=== PATIENT | female | born 1980 | race Caucasian/White ===

== ENCOUNTER 2017-03-24 19:35 | Emergency (ER) | payer OTHER ==
[2017-03-24 19:50] VITALS: BP 115/61; PULSE 87; TEMP 97.8; BMI 22.4
--- NOTE | 2017-03-24 21:01 | PDOC ---
History of Present Illness - General Chief Complaint: Sore Throat Stated Complaint: THROAT PAIN/PINK EYE Time Seen by Provider: 03/24/17 20:36 History Source: Patient Exam Limitations: No Limitations - History of Present Illness Initial Comments: 03/24/17 20:56 36 yr female with c/o pink eye both eyes and sore throat. Pt states her child has strep and pink eye. Pt denies fever or chills. no medical history or allergies. Timing/Duration: 24 hours Past History - Past Medical History Allergies/Adverse Reactions: Allergies Allergy/AdvReac Type Severity Reaction Status Date / Time No Known Drug Allergies Allergy Verified 03/24/17 19:47 Home Medications: Ambulatory Orders Acetaminophen [Tylenol -] 1,000 mg PO Q6H 03/24/17 Penicillin V Potassium [Pen Vee K -] 500 mg PO BID #20 tablet 03/24/17 Tobramycin 0.3% Ophth Soln [Tobrex Ophthalmic Solution -] 1 drop OU Q4HWA #2 bottle 03/24/17 Anemia: No Asthma: No Cancer: No Cardiac Disorders: Yes ("get tachycardiac" at times mostly when ) CVA: No CHF: No Dementia: No Diabetes: No GI Disorders: No Disorders: No HTN: No Hypercholesterolemia: No Liver Disease: No Seizures: No Thyroid Disease: No - Immunization History Immunization Up to Date: Yes - Psycho/Social/Smoking Cessation Hx Suicidal Ideation: No Smoking History: Never smoked Have you smoked in the past 12 months: No Information on smoking cessation initiated: No Hx Alcohol Use: No Drug/Substance Use Hx: No Substance Use Type: None Hx Substance Use Treatment: No Review of Systems - Review of Systems Able to Perform ROS?: Yes Is the patient limited [place] proficient: No Constitutional: Yes: Symptoms Reported HEENTM: Yes: Symptoms Reported *Physical Exam - Vital Signs Last Vital Signs Temp Pulse Resp BP Pulse Ox 97.8 F 87 18 115/61 99 03/24/17 19:47 03/24/17 19:47 03/24/17 19:47 03/24/17 19:47 03/24/17 19:47 - Physical Exam General Appearance: Yes: Nourished, Appropriately Dressed HEENT: positive: EOMI, DEMI, Tonsillar Exudate, Tonsillar Erythema, Other ( bilateral conjunctival red with discharge greyish white ) Neck: positive: Lymphadenopathy (R) Respiratory/Chest: positive: Lungs Clear, Normal Breath Sounds Cardiovascular: positive: Regular Rhythm, Regular Rate Gastrointestinal/Abdominal: positive: Normal Bowel Sounds, Soft Musculoskeletal: positive: Normal Inspection Extremity: positive: Normal Capillary Refill, Normal Inspection, Normal Range of Motion Integumentary: positive: Normal Color, Dry, Warm Neurologic: positive: Fully Oriented, Alert, Normal Mood/Affect, Normal Response , Motor Strength 5/5 Medical Decision Making - Medical Decision Making 03/24/17 20:58 cc: sore throat eye discharge, red , itchy afebrile non toxic will treat for strep and conjunctivitis *DC/Admit/Observation/Transfer Diagnosis at time of Disposition: Strep pharyngitis Conjunctivitis Qualifiers: Conjunctivitis type: acute Acute conjunctivitis type: viral Laterality: bilateral Qualified Code(s): B30.9 - Viral conjunctivitis, unspecified - Discharge Dispostion Disposition: HOME Condition at time of disposition: Good - Prescriptions Prescriptions: Penicillin V Potassium [Pen Vee K -] 500 mg PO BID #20 tablet Tobramycin 0.3% Ophth Soln [Tobrex Ophthalmic Solution -] 1 drop OU Q4HWA #2 bottle - Referrals Referrals: Stephan Harris MD [Staff Physician] - - Patient Instructions Additional Instructions: take the medication as prescribed gargle with warm salt water 4-5 times a day take motrin as needed for pain use the eye drops as prescribed wash hands frequently follow with your doctor if any worsening symptoms - Post Discharge Activity Work/School Note: Back to Work
== END 2017-03-24 21:18 | disposition home or self-care (01) ==
LOC: JERFT 19:35
DX: J02.0 Streptococcal pharyngitis (principal); B95.5 Unspecified streptococcus as the cause of diseases classified elsewhere; B30.9 Viral conjunctivitis, unspecified
CPT/HCPCS: 99281-25

== ENCOUNTER 2018-08-12 16:32 | Emergency (ER) | payer OTHER ==
--- NOTE | 2018-08-12 16:42 | PDOC ---
Rapid Medical Evaluation Medical Evaluation: Allergies Allergy/AdvReac Type Severity Reaction Status Date / Time No Known Drug Allergies Allergy Verified 03/24/17 19:47 08/12/18 16:37 I have performed a brief in-person evaluation of this patient. The patient presents with a chief complaint of: DIEZ x 8 months, worsened this am. Sometimes gets nausea with DIEZ. Takes tylenol which helps at times. For unclear reasons has not seen her doctor or a neuro for symptoms Pertinent physical exam findings: stable I have ordered the following:nothing The patient will proceed to the ED for further evaluation Discharge Disposition - Diagnosis Headache Qualifiers: Headache type: unspecified Headache chronicity pattern: chronic headache Intractability: not intractable Qualified Code(s): R51 - Headache - Referrals - Patient Instructions - Post Discharge Activity
[2018-08-12 16:46] VITALS: BP 132/93; PULSE 87; TEMP 98.3; BMI 22.8
[2018-08-12] MEDS ORDERED: KETOROLAC TROMETHAMINE 60 MG/2 ML VIAL IM ONE (17:24)
--- NOTE | 2018-08-12 17:28 | PDOC ---
History of Present Illness - General Chief Complaint: Migraine Headache Stated Complaint: HEADACHE Time Seen by Provider: 08/12/18 16:43 History Source: Patient Exam Limitations: No Limitations - History of Present Illness Initial Comments: 08/12/18 17:26 Patient here with complaints of worsening headache pain primarily frontal and ethmoid sinus pain. Denies fever, denies auras but states pain has progressively worsened over the past few months, and in fact noted onset of headaches 8 months ago. Has never seen a physician, has only taken Tylenol and some type of cold medication that has given her with some good resolved. Patient denies fever, however has intermittent greenish yellow nasal drainage. Denies cough, earache or sore throat pain. Denies visual changes although has photophobia with the pain tonight. Denies neck pain, rashes, any head trauma or recent injuries. Works for [employer] in [employer]. Severity: Yes: mild Associated Symptoms: reports: fatigue. denies: fever/chills Past History - Travel Traveled outside of the country in the last 30 days: No Close contact w/someone who was outside of country & ill: No - Past Medical History Allergies/Adverse Reactions: Allergies Allergy/AdvReac Type Severity Reaction Status Date / Time No Known Drug Allergies Allergy Verified 08/12/18 16:46 Home Medications: Ambulatory Orders Oxycodone HCl/Acetaminophen [Percocet 5-325 mg Tablet -] 1 - 2 tab PO Q4H PRN # 7 tablet MDD 4 08/12/18 Anemia: No Asthma: No Cancer: No Cardiac Disorders: Yes ("get tachycardiac" at times mostly when ) CVA: No COPD: No CHF: No Dementia: No Diabetes: No GI Disorders: No Disorders: No HTN: No Hypercholesterolemia: No Liver Disease: No Seizures: No Thyroid Disease: No - Immunization History Immunization Up to Date: Yes - Suicide/Smoking/Psychosocial Hx Smoking History: Never smoked Have you smoked in the past 12 months: No Information on smoking cessation initiated: No Hx Alcohol Use: No Drug/Substance Use Hx: No Substance Use Type: None Hx Substance Use Treatment: No Review of Systems - Review of Systems Able to Perform ROS?: Yes Is the patient limited Ukrainian proficient: Yes Constitutional: Yes: Symptoms Reported, See HPI, Fever, Malaise HEENTM: Yes: Symptoms Reported, See HPI, Nose Congestion. No: Ear Pain Respiratory: Yes: See HPI. No: Symptoms reported, Cough Neurological: Yes: Symptoms reported, See HPI, Headache. No: Numbness, Paresthesia, Seizure, Tingling All Other Systems: Reviewed and Negative *Physical Exam - Vital Signs Last Vital Signs Temp Pulse Resp BP Pulse Ox 98.3 F 87 16 132/93 100 08/12/18 16:44 08/12/18 16:44 08/12/18 16:44 08/12/18 16:44 08/12/18 16:44 - Physical Exam General Appearance: Yes: Nourished, Appropriately Dressed, Apparent Distress, Moderate Distress HEENT: positive: DEMI, TMs Normal (congestive the landmarks easily visualized), Rhinorrhea (clear drainage), Sinus Tenderness (moderate to severe tenderness behind frontal, ethmoid and maxillary sinuses with fullness) Neck: positive: Supple. negative: Tender, Lymphadenopathy (R), Lymphadenopathy (L) Respiratory/Chest: positive: Lungs Clear, Normal Breath Sounds Musculoskeletal: positive: Normal Inspection Extremity: positive: Normal Capillary Refill, Normal Inspection Integumentary: positive: Dry, Warm, Pale Neurologic: positive: liquified natural gas specialist II-XII NML intact, Fully Oriented, Alert, Normal Mood/ Affect, Normal Response, Motor Strength 5/5 Moderate Sedation - Procedure Monitoring Vital Signs: Procedure Monitoring Vital Signs Temperature 98.3 F 08/12/18 16:44 Pulse Rate 87 08/12/18 16:44 Respiratory Rate 16 08/12/18 16:44 Blood Pressure 132/93 08/12/18 16:44 O2 Sat by Pulse Oximetry (%) 100 08/12/18 16:44 Progress Note - Progress Note Progress Note: CT scan of the sinuses and head negative for sinus infection or any intracranial pathology. Reviewed with Dr. Bhatt, radiologist. Patient with minimal to moderate resolved after Toradol injection. Recommended follow-up this week with private physician for thorough exam and possible neurology consult further evaluation. Encouraged to hydrate well continue NSAIDs for anti- inflammatory purpose *DC/Admit/Observation/Transfer Diagnosis at time of Disposition: Headache Qualifiers: Headache type: unspecified Headache chronicity pattern: chronic headache Intractability: not intractable Qualified Code(s): R51 - Headache - Discharge Dispostion Disposition: HOME Condition at time of disposition: Stable Decision to Admit order: No - Prescriptions Prescriptions: Oxycodone HCl/Acetaminophen [Percocet 5-325 mg Tablet -] 1 - 2 tab PO Q4H PRN # 7 tablet MDD 4 PRN Reason: Pain - Referrals Referrals: William Morel MD [Staff Physician] - Misael Irvin DO [Staff Physician] - - Patient Instructions Printed Discharge Instructions: DI for Headache Additional Instructions: Rest, drink lots of fluids: Teas, water, soups, Pedialyte Steamy showers/seem to face break up mucus Avoid contact with others until fevers and cough resolved Lots of handwashing and good hygiene Continue [id number] medications for symptomatic relief Tylenol or Motrin for fever and pain May use Percocet for severe pain one half tablet to one tablet every 6 hours as needed, remembering will make dizzy and sleepy Followup with private physician in one to 2 days as needed Return to emergency department for worsened symptoms, fevers, dehydration - Post Discharge Activity Forms/Work/School Notes: Back to Work
[2018-08-12] MEDS ORDERED: KETOROLAC TROMETHAMINE 60 MG/2 ML VIAL ONE (17:45)
== END 2018-08-12 19:25 | disposition home or self-care (01) ==
LOC: JERFT 16:32
PROC: 3E0233Z Introduction of Anti-inflammatory into Muscle, Percutaneous Approach (ICD-10-PCS; principal; 2018-08-12)
DX: R51 Headache (principal)
CPT/HCPCS: 70450-TC; 70486-TC; 84703; 99281-25